=== PATIENT | male | born 1995 | race Two or more races ===

== ENCOUNTER 2023-12-15 11:16 | Emergency (ER) | payer MEDICAID ==
[~2023-12-15] VITALS: Ht 188 cm; Wt 145.4 kg
[2023-12-15 11:22] VITALS: BP 123/101; PULSE 73; RESP 18; TEMP 97.9; O2SAT 98
[2023-12-15] MEDS ORDERED: POVIDONE-IODINE 10% 120 ML SOLUTION TP ONE (14:13)
[2023-12-15] MEDS: POVIDONE-IODINE 10% 15 ML SOLUTION UD TP ONE (14:25)
[2023-12-15] MEDS: LIDOCAINE 1%/EPI 1:200,000/PF 10 ML VIAL ID ONE (14:26)
[2023-12-15] MEDS: PERTUSS(ACELL),DIPH,TET/PF 0.5 ML SYRINGE [ADULT] IM. ONE (14:28)
== END 2023-12-15 15:04 | disposition home or self-care (01) ==
LOC: EMS 11:16
DX: S81.812A Laceration without foreign body, left lower leg, initial encounter (principal); F17.210 Nicotine dependence, cigarettes, uncomplicated; W22.8XXA Striking against or struck by other objects, initial encounter; Y93.89 Activity, other specified; Y92.89 Other specified places as the place of occurrence of the external cause; Y99.8 Other external cause status
CPT/HCPCS: 99283; 99406; 90715; 90471; 12004; J3490